=== PATIENT | male | born 1990 | race Caucasian/White ===

== ENCOUNTER 2019-10-28 10:04 | Emergency (ER) | payer SELFPAY ==
[~2019-10-28] VITALS: Ht 165.1 cm; Wt 63.5 kg
[2019-10-28] MEDS ORDERED: SODIUM CHLORIDE 0.9% 1,000 ML IV ONE (11:00)
[2019-10-28 11:32] LABS: Basophils # (auto) 0 uL; Basophils % (auto) 0.5 % (0.0-2.0); Eosinophils # (auto) 0 uL; Eosinophils % (auto) 0.3 % (0.0-7.0); Hematocrit 45.2 % (41.0-53.0); Hemoglobin 15.2 g/dL (13.5-17.5); Lymphocytes # (auto) 1.1 uL; Lymphocytes % (auto) 13.9 % (10.0-50.0); Mean Corpuscular Hemoglobin 29.6 pg (28.0-32.0); Mean Corpuscular Hgb Conc. 33.5 g/dL (32.0-36.0); Mean Corpuscular Volume 88.3 fL (80.0-100.0); Monocytes # (auto) 0.4 uL; Monocytes % (auto) 5.7 % (0.0-12.0); Neutrophils # (auto) 6.2 uL; Neutrophils % (auto) 79.6 % (37.0-80.0); Platelet Count (auto) 291 10^3/uL (140-450); Red Blood Cells 5.12 10^6/uL (4.5-5.90); Red Cell Distribution Width 13.6 % (11.8-14.3); White Blood Cell 7.8 10^3/uL (4.4-10.8)
[2019-10-28 11:45] LABS: Albumin 4.5 g/dL (3.4-5.0); Potassium 4.3 mmol/L (3.5-5.1)
[2019-10-28 11:46] LABS: Salicylate 2.1 mg/dL (2.8-20.0)
[2019-10-28 11:47] LABS: Urine Bacteria NONE SEEN /hpf (None Seen); Urine Blood Negative /uL (Negative); Urine Specific Gravity 1.008 (1.001-1.035); Urine WBC <1 /hpf (0 - 3)
[2019-10-28 11:51] LABS: BUN/Creatinine Ratio 12.9; Bilirubin, Total 0.5 mg/dL (0.2-1.0)
[2019-10-28 11:53] LABS: Alcohol, Urine < 3.0 mg/dL (0-5); Amphetamine Screen, Urine NEGATIVE (NEGATIVE); Barbiturate Scree,Urine NEGATIVE (NEGATIVE); Benzodiazephine Screen, Urine NEGATIVE (NEGATIVE); Cannabinoid Screen, Urine POSITIVE (NEGATIVE); Cocaine Screen, Urine NEGATIVE (NEGATIVE); Phencyclidine Screen, Urine NEGATIVE (NEGATIVE)
[2019-10-28 11:53] LABS: Acetaminophen < 2.0 ug/mL (10-30)
[2019-10-28 12:01] VITALS: BP 115/67
[2019-10-28 12:01] LABS: Opiate Scree,Urine NEGATIVE (NEGATIVE)
== END 2019-10-28 12:52 | disposition home or self-care (01) ==
LOC: ER 10:04
DX: R25.1 Tremor, unspecified (principal); R51 Headache; R11.10 Vomiting, unspecified
CPT/HCPCS: 36415; 80053; 80307; 80329; 81001; 85025; 96360; 96361

== ENCOUNTER 2019-11-08 09:22 | Emergency (ER) | payer SELFPAY ==
[~2019-11-08] VITALS: Ht 165.1 cm; Wt 63.5 kg
[2019-11-08 09:32] VITALS: BP 123/80
== END 2019-11-08 09:57 | disposition home or self-care (01) ==
LOC: ER 09:22
DX: H66.93 Otitis media, unspecified, bilateral (principal)